=== PATIENT | female | born 1980 | race Caucasian/White ===

== ENCOUNTER 2023-08-27 14:28 | Emergency (ER) | payer BC, SELFPAY ==
--- NOTE | 2023-08-27 15:05 | ED.GENMED ---
History of Present Illness
General
Chief Complaint: Anal/Rectal Problem
Source: patient and spouse
Exam Limitations: none
Time Seen by Provider: 08/27/23 14:47
Nursing documentation reviewed up to this point in time: agreed with
Travel History
Have you had any contact with someone who has COVID-19?: No
Do you have any symptoms of coronavirus? Fever > 100 degrees, chills, cough, shortness of breath, sore throat, loss of taste or smell, muscle aches, or headache?: No
History of Present Illness
History of Present Illness:
Patient is a 43-year-old female presents to the emergency department complaining of rectal pain for the past week. Patient had occasional bright red blood on toilet paper. Patient denies any fever or chills, nausea, vomiting or diarrhea. Patient
denies constipation. Patient has extremely painful bowel movements. Patient is concerned about hemorrhoids. Patient just returned from [place]. Patient denies any menstrual irregularities. Patient is supposed to have a colonoscopy because of
some of the bleeding in the past. 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 Patient denies weight loss or changes in appetite.
Past History
Past History
ED Past Medical History: None
Social History
Tobacco: Non-smoker
Review of Systems
Review of Systems
All Other Systems: ROS reviewed and negative except as documented in HPI and ROS
Constitutional: Reports no symptoms
Respiratory: Reports no symptoms
Cardiac: Reports no symptoms
ABD/GI: Reports bloody stools and other (Rectal pain with painful bowel movements); Denies abdominal pain, nausea, vomiting, diarrhea, constipated, black stools or anorexia
: Reports no symptoms
Musculoskeletal: Reports no symptoms
Skin: Reports no symptoms
Neurological: Reports no symptoms
Hematologic/Lymphatic: Reports no symptoms; Denies bruising
Phy Exam
Physical Exam
Physical Exam:
Physical Exam
General: mild distress, alert and appropriate, well nourished, well hydrated
HENT: Normocephalic, supple with no lymphadenopathy, no thyromegaly
Eyes: Clear sclera, conjuctiva without injection
Heart: Regular rhythm and rate. No S3, S4. No murmur.
Lungs: No respiratory distress, no stridor, lung sounds clear and equal bilaterally
Abdomen: Soft, nontender, no organomegaly, no CVA tenderness, BS good. Rectal shows no hemorrhoids. Nontender around the rectum
Neuro: Alert and oriented x 3, CN II - XII intact, no motor focality, no cerebellar dysfunction
Skin: no rash
Psychiatric: well kept. interactive and cooperative
Extremities: No edema, cyanosis, tenderness, Good and equal peripheral pulses.
Course
Orders/Labs/Results
Orders:
Orders
08/27/23 15:01
0.9% Sodium Chloride 1000 ml [Nss] 1,000 ml IV BOLUS
HYDROmorphone [Dilaudid] 1 mg IV NOW STA
Iohexol [Omnipaque] See Protocol PO NOW STA
Ondansetron Injectable [Zofran] 4 mg IV NOW STA
08/27/23 15:02
CT Abd/pel W Iv And Oral Contr Urgent
Comment:
Reason For Exam: rectal pain
08/27/23 15:03
Test Result ONCE
08/27/23 16:00
Complete Blood Count/With Diff Urgent
Comprehensive Metabolic Panel Urgent
HCG, Serum Qualitative Screen Urgent
Abnormal Lab Results
08/27/23
16:00
Sodium 134 L mmol/L
(135-145)
08/27/23 16:00
08/27/23 16:00
Vital Signs
Initial and Last Documented VS:
Initial Vital Signs
Pulse BP
73 134/90
08/27/23 19:01 08/27/23 19:01
Last Documented Vital Signs
Pulse BP
73 134/90
08/27/23 19:01 08/27/23 19:01
*Radiology
Radiology exam reviewed: radiology read reviewed (CT unremarkable)
*Pulse Oximetry
Patient hypoxic: no
*EKG
Interpreted by ED Provider?: NA
*County Supervisor Interpretation
Rate: County Supervisor- N/A
*Critical Care Note
Total Time (30-74mins, 75-104mins- exclusive of procedures): Not Applicable
Update Note
Update Note:
Patient has rectal pain without apparent etiology. Patient may have an internal fissure but there is nothing external. Discussed the findings with the patient and her . Patiently discharged with follow-up to colorectal.
ED Attending Note
-
Portions of this chart may have been created with voice recognition software.� Occasional wrong word or��sound alike� substitutions may have occurred due to the inherent limitations of voice recognition software.
Discharge Plan
Departure
Patient Disposition: Home (Routine Discharge)
Date of Disposition: 08/27/23
Time of Disposition: 19:25
Patient with high blood pressure during this ER visit?: No
Condition: Good
Covid-19: Not Applicable
Discharge Problem:
Pain, rectal
Instructions: How to Do a Sitz Bath
Prescriptions:
New
hydrocortisone acetate [Anusol-HC] 25 mg suppository
25 mg [place] BID Qty: 24 0RF
Referrals:
Erasto Birmingham MD [Active] - Call in 1-3 days for appt
UNKNOWN - PT DOES,NOT KNOW [Family Provider] -
Activity Restrictions/Additional Instructions:
Use Metamucil daily
Interventions
Interventions:
*General Assessment Last Done: 08/27/23 14:33
*ED COVID-19 Vaccine History Last Done: 08/27/23 14:33
HO-Ldizdj-Nqypljbxnu Assessment Last Done: 08/27/23 15:30
ED-Skin Assessment Last Done: 08/27/23 19:02
[2023-08-27] MEDS: NSS 1000 IV (15:52)
[2023-08-27] MEDS: ZOFRAN 4 MG IV (15:53)
[2023-08-27] MEDS: DILAUDID 1 MG IV (15:57)
[2023-08-27] MEDS: OMNIPAQUE 50 ML PO (15:58)
[2023-08-27 16:21] LABS: % Basophils 0.9 % (0-2); % Eosinophils 3.9 % (0-6); % Immature Granulocytes 0.3 % (0-0.5); % Lymphocytes 30.3 % (20.5-51.1); % Monocytes 7.7 % (1.7-9.3); % Neutrophils 56.9 % (42.2-75.2); Absolute Basophils 0.1 10^3/uL (0-0.2); Absolute Eosinophils 0.3 10^3/uL (0-0.7); Absolute Lymphocytes 2.3 10^3/uL (1.2-3.4); Absolute Monocytes 0.6 10^3/uL (0.1-0.6); Absolute Neutrophils 4.4 10^3/uL (1.4-6.5); Hematocrit 37.8 % (37.0-47.0); Hemoglobin 13.4 g/dL (12.0-16.0); Mean Corp Hgb Conc. 35.4 g/dL (33.0-37.0); Mean Corpuscular Volume 87.5 fL (81.0-99.0); Mean Platelet Volume 9.3 fL (7.4-10.4); Nucleated Red Blood Cells % 0 %; Platelet Count 384 10^3/uL (130-400); Red Blood Cell Count 4.32 10^6/uL (4.20-5.40); White Blood Cell Count 7.7 10^3/uL (4.8-10.8)
[2023-08-27 16:28] LABS: HCG, Serum Qualitative Screen Negative
[2023-08-27 16:30] LABS: ALT (SGPT) 31 U/L (0-35); AST (SGOT) 32 U/L (14-36); Albumin 4.4 g/dl (3.5-5.0); Alkaline Phosphatase 71 U/L (38-126); Blood Urea Nitrogen 16 mg/dl (7-17); Calcium 9.3 mg/dl (8.4-10.2); Carbon Dioxide 26 mmol/L (22-30); Chloride 103 mmol/L (98-107); Glucose 90 mg/dl (70-99); Potassium 4.6 mmol/L (3.5-5.1); Sodium 134 mmol/L (135-145); Total Bilirubin 0.5 mg/dl (0.2-1.3); Total Protein 7.2 g/dl (6.3-8.2); eGFR > 60.00
[2023-08-27 19:01] VITALS: BP 134/90
[2023-08-27 19:33] VITALS: BP 134/90
== END 2023-08-27 19:34 | disposition home or self-care (01) ==
LOC: EMR 14:28
PROVIDERS: EMERGENCY PHYSICIAN Emergency Medicine
DX: K62.89 Other specified diseases of anus and rectum (principal); K92.1 Melena
CPT/HCPCS: 99285; 96375; 96361; 96374; 74177; 80053; 84703; 85025; Q9967